=== PATIENT | female | born 1925 | race Caucasian/White ===

== ENCOUNTER 2017-01-10 09:51 | Outpatient (CLI) | payer MEDICARE, OTHER ==
[2014-12-10 22:00] VITALS: BP 109/52
== END 2017-01-10 09:52 ==
LOC: LAB 09:51
PROVIDERS: ATTEND Nurse Practitioner Family
DX: E03.4 Atrophy of thyroid (acquired) (principal)
CPT/HCPCS: 36415; 84439; 84443; 84481